=== PATIENT | male | born 1955 | race Caucasian/White ===

== ENCOUNTER 2018-02-16 08:55 | Emergency (ER) | payer BC ==
[~2018-02-16] VITALS: Ht 172.7 cm; Wt 88.2 kg
[2018-02-16] MEDS ORDERED: ATORVASTATIN CA40 MG PO (09:35)
[2018-02-16] MEDS ORDERED: OMEPRAZOLE D/R20 MG PO (09:35)
[2018-02-16] MEDS ORDERED: AMLODIPINE BESY10 MG PO (09:35)
[2018-02-16] MEDS ORDERED: ASPIR LOW81 MG PO (09:35)
[2018-02-16] MEDS ORDERED: PREDNISONE20 M1 PO (10:10)
[2018-02-16 10:27] VITALS: BP 129/59
== END 2018-02-16 10:18 | disposition home or self-care (01) ==
LOC: ED 08:55
DX: T78.40XA Allergy, unspecified, initial encounter (principal); R06.02 Shortness of breath; L29.9 Pruritus, unspecified; R05 Cough; I10 Essential (primary) hypertension; E78.5 Hyperlipidemia, unspecified
CPT/HCPCS: J1200; J2930; J7030